=== PATIENT | female | born 1985 | race Caucasian/White ===

== ENCOUNTER 2016-11-03 16:13 | Emergency (ER) | payer MEDICAID ==
[2016-11-03 16:50] LABS: Hematocrit 38 % (35-47); Mean Corpuscular HGB Conc 34 g/dl (31-36); Mean Corpuscular Hemoglobin 31 pg (27-31); Mean Corpuscular Volume 91 fL (80-97); Mean Platelet Volume 10 um3 (7.4-10.4); Red Cell Distribution Width 13 % (10.5-15)
[2016-11-03 17:06] LABS: Albumin 4.6 g/dL (3.2-5.2); BUN/Creatinine Ratio 9.2 (8-20); C Reactive Protein 21.55 mg/L (< 5.00); Calcium 9.6 mg/dL (8.6-10.3); EGFR African American 115.7 (>60); Potassium 3.6 mmol/L (3.5-5.0); Total Bilirubin 0.4 mg/dL (0.2-1.0); Total Protein 7.6 g/dL (6.4-8.9)
[2016-11-03] MEDS ORDERED: Ibuprofen TAB* 600 MG PO ONE (17:08)
[2016-11-03] MEDS ORDERED: Acetaminophen TAB* 325 MG PO ONE (17:11)
[2016-11-03] MEDS ORDERED: Ketorolac INJ* 30 MG/ML 1 ML VIAL IV PUSH ONE (21:17)
[2016-11-03] MEDS ORDERED: Ondansetron INJ* 2 MG/ML VIAL IV ONE (21:17)
[2016-11-03] MEDS ORDERED: NS 0.9% 1000 ML* 1,000 ML IV ONE (21:17)
[2016-11-03 21:21] LABS: Manual Entry Verification MR; UR Preg Internal Control QC Line Present
--- NOTE | 2016-11-03 21:27 | ED ---
Dominik Finch Thomas, scribed for Charly Yu MD on 11/03/16 at 2113 . Complex/Multi-Sys Presentation - HPI Summary HPI Summary: The pt is a 31 y/o F presenting to the Ed c/o generalized illness. Sx include fever, [place], nausea, neck pain, swollen glands in her legs, myalgia in her legs, arthralgia (knees, ankles, wrists), and decreased sleep secondary to pain. Her fever began 3 days ago and her other Sx began 24 hous ago. She denies vomiting. Her fever and pain are transiently relieved by ibuprofen, which she has taken today. Her Sx return quickly when meds wear off. PMHx: ulcers - History Of Current Complaint Chief Complaint: EDGeneral Time Seen by Provider: 11/03/16 21:09 Hx Obtained From: Patient Onset/Duration: Lasting Days - Sx began 24 hours ago (except fever, which began 3 days ago), Still Present Associated Signs And Symptoms: Positive: Headache, Nausea, Fever, Other - POS: neck pain, swollen glands in legs, myalgia in her legs, arthralgia (knees, ankles, wrists), decreased sleep secondary to [place]IN. Negative: Vomiting - Allergies/Home Medications Allergies/Adverse Reactions: Allergies Allergy/AdvReac Type Severity Reaction Status Date / Time Oxycodone [From Percocet] Allergy Itching Verified 11/03/16 16:25 PMH/Surg Hx/FS Hx/Imm Hx Previously Healthy: No GI History: Reports: Hx Ulcer Opthamlomology History: Denies: Hx Legally Blind Infectious Disease History: No Infectious Disease History: Denies: Traveled Outside the [place] in Last 30 Days - Family History Known Family History: Positive: Cardiac Disease, Other - POS: CA (leukemia), migraine - Social History Alcohol Use: Rare Substance Use Type: Reports: None Smoking Status (MU): Never Smoked Tobacco Review of Systems Positive: Fever, Other - POS: decreased sleep secondary to pain Eyes: Negative ENT: Other - POS: neck pain Cardiovascular: Negative Respiratory: Negative Positive: Nausea Genitourinary: Negative Positive: Arthralgia, Myalgia - legs Positive: Other - POS: swollen glands in legs Neurological: Other Positive: Headache Psychological: Normal All Other Systems Reviewed And Are Negative: Yes Physical Exam Triage Information Reviewed: Yes Vital Signs On Initial Exam: Initial Vitals Temp Pulse Resp BP Pulse Ox 100.8 F 108 18 129/71 98 11/03/16 16:16 11/03/16 16:16 11/03/16 16:16 11/03/16 16:16 11/03/16 16:16 Vital Signs Reviewed: Yes Appearance: Positive: Well-Appearing, No Pain Distress Skin: Positive: Warm Head/Face: Positive: Normal Head/Face Inspection Eyes: Positive: BRANDY ENT: Positive: Hearing grossly normal Neck: Positive: Supple Respiratory/Lung Sounds: Positive: Clear to Auscultation, Breath Sounds Present Cardiovascular: Positive: RRR Abdomen Description: Positive: Nontender, Soft Bowel Sounds: Positive: Present Musculoskeletal: Positive: Strength/ROM Intact Neurological: Positive: Alert, Oriented to Person Place, Time Psychiatric: Positive: Affect/Mood Appropriate - [place] Coma Scale Coma Scale Total: 15 Diagnostics - Vital Signs Vital Signs Temp Pulse Resp BP Pulse Ox 11/03/16 20:48 84 98 11/03/16 20:46 114/65 11/03/16 20:30 99.4 F 87 14 99/53 98 11/03/16 19:12 99.1 F 89 14 99/48 96 11/03/16 18:27 101.6 F 97 22 103/54 97 11/03/16 16:23 100.8 F 102 17 129/71 97 11/03/16 16:16 100.8 F 108 18 129/71 98 - Laboratory Lab Results: Lab Results 11/03/16 11/03/16 Range/Units 16:38 16:38 WBC 8.0 (3.5-10.8) 10^3/ul RBC 4.20 (4.0-5.4) 10^6/ul Hgb 13.0 (12.0-16.0) g/dl Hct 38 (35-47) % MCV 91 (80-97) fL MCH 31 (27-31) pg MCHC 34 (31-36) g/dl RDW 13 (10.5-15) % Plt Count 151 (150-450) 10^3/ul MPV 10 (7.4-10.4) um3 Neut % (Auto) 86.8 H (38-83) % Lymph % (Auto) 5.3 L (25-47) % [place] % (Auto) 7.6 (1-9) % Eos % (Auto) 0.1 (0-6) % Baso % (Auto) 0.2 (0-2) % Absolute Neuts (auto) 6.9 (1.5-7.7) 10^3/ul Absolute Lymphs (auto) 0.4 L (1.0-4.8) 10^3/ul Absolute Monos (auto) 0.6 (0-0.8) 10^3/ul Absolute Eos (auto) 0 (0-0.6) 10^3/ul Absolute Basos (auto) 0 (0-0.2) 10^3/ul Absolute Nucleated RBC 0 10^3/ul Nucleated RBC % 0 Sodium 139 (133-145) mmol/L Potassium 3.6 (3.5-5.0) mmol/L Chloride 104 (101-111) mmol/L Carbon Dioxide 27 (22-32) mmol/L Anion Gap 8 (2-11) mmol/L BUN 7 (6-24) mg/dL Creatinine 0.76 (0.51-0.95) mg/dL Est GFR ( Amer) 115.7 (>60) Est GFR (Non-Af Amer) 90.0 (>60) BUN/Creatinine Ratio 9.2 (8-20) Glucose 101 H (70-100) mg/dL Calcium 9.6 (8.6-10.3) mg/dL Total Bilirubin 0.40 (0.2-1.0) mg/dL AST 19 (13-39) U/L ALT 14 (7-52) U/L Alkaline Phosphatase 46 (34-104) U/L C-Reactive Protein 21.55 H (< 5.00) mg/L Total Protein 7.6 (6.4-8.9) g/dL Albumin 4.6 (3.2-5.2) g/dL Globulin 3.0 (2-4) g/dL Albumin/Globulin Ratio 1.5 (1-3) Result Diagrams: 11/03/16 16:38 11/03/16 16:38 Lab Statement: Any lab studies that have been ordered have been reviewed, and results considered in the medical decision making process. Re-Evaluation - Re-Evaluation First Eval Change: Improved Complex Multi-Symp Course/Dx - Diagnoses Provider Diagnoses: Viral syndrome Discharge - Discharge Plan Condition: Improved Disposition: HOME The documentation as recorded by the Dominik reddy Thomas accurately reflects the service I personally performed and the decisions made by me, Charly Yu MD.
[2016-11-03 21:28] LABS: Urine Bacteria Absent (Absent); Urine Bilirubin Negative (Negative); Urine Glucose Negative (Negative); Urine Nitrite Negative (Negative)
[2016-11-04] MEDS ORDERED: HYDROcodone/ACETAMIN 5-325 MG* 1 TAB PO ONE ×2 (00:18→01:00)
[2016-11-04 01:41] VITALS: BP 108/56
== END 2016-11-04 01:43 | disposition home or self-care (01) ==
LOC: ED 16:13
DX: B34.9 Viral infection, unspecified (principal); R50.9 Fever, unspecified; M54.2 Cervicalgia; R51 Headache
CPT/HCPCS: 36415; 80053; 81003; 81015; 81025; 85025; 86140; 86618; 87040; 87086; 96374; 96375; 99284; A9270-GY; J1885; J2405

== ENCOUNTER 2016-11-04 16:12 | Inpatient (IN) | payer MEDICAID ==
[2016-11-04] MEDS ORDERED: Ketorolac INJ* 30 MG/ML 1 ML VIAL IV ONE (17:03)
[2016-11-04] MEDS ORDERED: NS 0.9% 1000 ML* 2,000 ML IV ONE (17:03)
[2016-11-04] MEDS ORDERED: Metoclopramide IV* 5 MG/ML 2 ML VIAL IV ONE (17:03)
[2016-11-04] MEDS ORDERED: Acetaminophen TAB* 325 MG PO ONE (17:03)
[2016-11-04] MEDS ORDERED: Vancomycin(*) 1,000 MG in NS 0.9% 250 ML* 250 ML IVPB ONE (17:57)
[2016-11-04 18:01] LABS: Hematocrit 37 % (35-47); Hemoglobin 12.6 g/dl (12.0-16.0); Mean Corpuscular HGB Conc 34 g/dl (31-36); Mean Corpuscular Hemoglobin 31 pg (27-31); Mean Corpuscular Volume 91 fL (80-97); Mean Platelet Volume 10 um3 (7.4-10.4); Red Blood Count 4.04 10^6/ul (4.0-5.4); Red Cell Distribution Width 13 % (10.5-15); White Blood Count 9.6 10^3/ul (3.5-10.8)
[2016-11-04] MEDS: diPHENhydraMINE IV* 50 MG/ML 1 ml VIAL (BENADRYL) IM ONE ×2 (18:11→18:42)
[2016-11-04 18:16] LABS: BUN/Creatinine Ratio 6.9 (8-20); Calcium 8.7 mg/dL (8.6-10.3); Globulin 2.9 g/dL (2-4); Potassium 3.3 mmol/L (3.5-5.0); Total Bilirubin 0.5 mg/dL (0.2-1.0); Total Protein 6.9 g/dL (6.4-8.9)
[2016-11-04 18:44] LABS: Urine Bacteria 1+ (Absent); Urine Bilirubin Negative (Negative); Urine Glucose Negative (Negative); Urine Nitrite Negative (Negative)
[2016-11-04 18:56] LABS: Erythrocyte Sed Rate 27 mm/Hr (0-14)
--- NOTE | 2016-11-04 19:19 | ED ---
Heidy Finch Salem, scribed for Javier Jacob MD on 11/04/16 at 1654 . HPI Febrile Illness - HPI Summary HPI Summary: Patient is a 31 y/o F who presents to the ED with a fever for the past 4 days. She states that symptoms began with a swollen gland in her groin and pain radiating down her LLE. Since then she has been experiencing various symptoms. She reports sensitivity to neck movement since 2 days ago, joint soreness ( worse in lower back and knees), back soreness, nauseas, fever, numbness of hands , headache, and mild post-nasal drip, but she denies cough, sore throat, or rash. Pt states that she was bit on her chest by a tick 1.5 weeks ago. At 1330, pt took Tylenol 500mg. Her last pain medication was at 0730 this morning. - History of Current Complaint Chief Complaint: EDFever Time Seen by Provider: 11/04/16 16:21 Hx Obtained From: Patient, Family/Cocoa Roaster Onset/Duration: Started Days Ago, Atraumatic, Still Present Timing: Constant Initial Severity: Moderate Current Severity: Moderate Pain Intensity: 7 Pain Scale Used: 0-10 Numeric Aggravating Factors: Other: - Movement. Alleviating Factors: Other: - Recumbent position. Associated Signs and Symptoms: Headache, Nausea Related History: Recent Tick Bite - Allergy/Home Medications Allergies/Adverse Reactions: Allergies Allergy/AdvReac Type Severity Reaction Status Date / Time Oxycodone [From Percocet] Allergy Itching Verified 11/04/16 16:19 PMH/Surg Hx/FS Hx/Imm Hx GI History: Reports: Hx Ulcer Sensory History: Denies: Hx Legally Blind Opthamlomology History: Denies: Hx Legally Blind Infectious Disease History: Yes Infectious Disease History: Denies: Traveled Outside the [place] in Last 30 Days - Family History Known Family History: Positive: Cardiac Disease, Other - POS: CA (leukemia), migraine - Social History Alcohol Use: Rare Hx Substance Use: No Substance Use Type: Reports: None Hx Tobacco Use: No Smoking Status (MU): Never Smoked Tobacco Review of Systems Positive: Fever Positive: Other - Sensitivity to neck movement. Mild post-nasal drip. . Negative: Sore Throat Negative: Cough Positive: Nausea Positive: Other - Pain down LLE. Swollen gland in groin. "Joint soreness." Sore back. Soreness in hands. Negative: Rash Positive: Headache All Other Systems Reviewed And Are Negative: Yes Physical Exam - Summary Physical Exam Summary: The patient is well-nourished in no acute distress and in no acute pain. The skin is warm and dry and skin color reflects adequate perfusion. She has good skin trugor and there are no rashes noted. HEENT: The head is normocephalic and atraumatic. The pupils are equal and reactive, but there is slight photophobia. The conjunctivae are clear and without drainage. Nares are patent and without drainage. Mouth reveals moist mucous membranes and the throat is without erythema and exudate. There is no post-nasal drip. The external ears are intact. The ear canals are patent and without drainage. The tympanic membranes are intact. She appeared to move her neck freely, but tender. Respiratory: Chest is non-tender. Lungs are clear to auscultation and breath sounds are symmetrical and equal. Cardiovascular: Hear is regular rate and rhythm. There is no murmur or rub auscultated. There is no peripheral edema and pulses are symmetrical and equal. Abdomen: The abdomen is soft and non-tender. There are normal bowel sounds heard in all four quadrants. Musculoskeletal: There is no back pain noted. Extremities are non-tender with full range of motion. There is good capillary refill. She exhibits muscle spams. Neurological: Patient is alert and oriented to person, place and time. The patient has symmetrical motor strength in all four extremities. No focal deficit appreciated. Psychiatric: The patient has an appropriate affect and does not exhibit any anxiety or depression. Triage Information Reviewed: Yes Vital Signs On Initial Exam: Initial Vitals Temp Pulse Resp BP Pulse Ox 101.6 F 99 16 119/55 100 11/04/16 16:17 11/04/16 16:17 11/04/16 16:17 11/04/16 16:17 11/04/16 16:17 Vital Signs Reviewed: Yes - [place] Coma Scale Coma Scale Total: 15 Diagnostics - Vital Signs Vital Signs Temp Pulse Resp BP Pulse Ox 11/04/16 16:40 101.3 F 90 16 119/60 100 11/04/16 16:17 101.6 F 99 16 119/55 100 - Laboratory Lab Results: Lab Results 0711/04/16 11/04/16 Range/Units 17:51 17:51 17:51 WBC 9.6 (3.5-10.8) 10^3/ul RBC 4.04 (4.0-5.4) 10^6/ul Hgb 12.6 (12.0-16.0) g/dl Hct 37 (35-47) % MCV 91 (80-97) fL MCH 31 (27-31) pg MCHC 34 (31-36) g/dl RDW 13 (10.5-15) % Plt Count 135 L (150-450) 10^3/ul MPV 10 (7.4-10.4) um3 Neut % (Auto) 91.1 H (38-83) % Lymph % (Auto) 4.1 L (25-47) % [place] % (Auto) 4.6 (1-9) % Eos % (Auto) 0 (0-6) % Baso % (Auto) 0.2 (0-2) % Absolute Neuts (auto) 8.7 H (1.5-7.7) 10^3/ul Absolute Lymphs (auto) 0.4 L (1.0-4.8) 10^3/ul Absolute Monos (auto) 0.4 (0-0.8) 10^3/ul Absolute Eos (auto) 0 (0-0.6) 10^3/ul Absolute Basos (auto) 0 (0-0.2) 10^3/ul Absolute Nucleated RBC 0 10^3/ul Nucleated RBC % 0 ESR 27 H (0-14) mm/Hr INR (Anticoag Therapy) (0.89-1.11) APTT (26.0-36.3) seconds Sodium 131 L D (133-145) mmol/L Potassium 3.3 L (3.5-5.0) mmol/L Chloride 99 L (101-111) mmol/L Carbon Dioxide 26 (22-32) mmol/L Anion Gap 6 (2-11) mmol/L BUN 6 (6-24) mg/dL Creatinine 0.87 (0.51-0.95) mg/dL Est GFR ( Amer) 99.0 (>60) Est GFR (Non-Af Amer) 77.0 (>60) BUN/Creatinine Ratio 6.9 L (8-20) Glucose 131 H (70-100) mg/dL Lactic Acid 1.0 (0.5-2.0) mmol/L Calcium 8.7 (8.6-10.3) mg/dL Total Bilirubin 0.50 (0.2-1.0) mg/dL AST 27 (13-39) U/L ALT 26 (7-52) U/L Alkaline Phosphatase 34 (34-104) U/L Total Protein 6.9 (6.4-8.9) g/dL Albumin 4.0 (3.2-5.2) g/dL Globulin 2.9 (2-4) g/dL Albumin/Globulin Ratio 1.4 (1-3) Urine Color Urine Appearance Urine pH (5-9) Ur Specific [place] (1.010-1.030) Urine Protein (Negative) Urine Ketones (Negative) Urine Blood (Negative) Urine Nitrate (Negative) Urine Bilirubin (Negative) Urine Urobilinogen (Negative) Ur Leukocyte Esterase (Negative) Urine WBC (Auto) (Absent) Urine RBC (Auto) (Absent) Ur Squamous Epith Cells (Absent) Urine Bacteria (Absent) Urine Glucose (Negative) 11/04/16 11/04/16 Range/Units 17:51 18:00 WBC (3.5-10.8) 10^3/ul RBC (4.0-5.4) 10^6/ul Hgb (12.0-16.0) g/dl Hct (35-47) % MCV (80-97) fL MCH (27-31) pg MCHC (31-36) g/dl RDW (10.5-15) % Plt Count (150-450) 10^3/ul MPV (7.4-10.4) um3 Neut % (Auto) (38-83) % Lymph % (Auto) (25-47) % [place] % (Auto) (1-9) % Eos % (Auto) (0-6) % Baso % (Auto) (0-2) % Absolute Neuts (auto) (1.5-7.7) 10^3/ul Absolute Lymphs (auto) (1.0-4.8) 10^3/ul Absolute Monos (auto) (0-0.8) 10^3/ul Absolute Eos (auto) (0-0.6) 10^3/ul Absolute Basos (auto) (0-0.2) 10^3/ul Absolute Nucleated RBC 10^3/ul Nucleated RBC % ESR (0-14) mm/Hr INR (Anticoag Therapy) 1.20 H (0.89-1.11) APTT 26.4 (26.0-36.3) seconds Sodium (133-145) mmol/L Potassium (3.5-5.0) mmol/L Chloride (101-111) mmol/L Carbon Dioxide (22-32) mmol/L Anion Gap (2-11) mmol/L BUN (6-24) mg/dL Creatinine (0.51-0.95) mg/dL Est GFR ( Amer) (>60) Est GFR (Non-Af Amer) (>60) BUN/Creatinine Ratio (8-20) Glucose (70-100) mg/dL Lactic Acid (0.5-2.0) mmol/L Calcium (8.6-10.3) mg/dL Total Bilirubin (0.2-1.0) mg/dL AST (13-39) U/L ALT (7-52) U/L Alkaline Phosphatase (34-104) U/L Total Protein (6.4-8.9) g/dL Albumin (3.2-5.2) g/dL Globulin (2-4) g/dL Albumin/Globulin Ratio (1-3) Urine Color Yellow Urine Appearance Clear Urine pH 7.0 (5-9) Ur Specific [place] 1.011 (1.010-1.030) Urine Protein 1+(30 mg/dl) H (Negative) Urine Ketones 1+ H (Negative) Urine Blood 1+ H (Negative) Urine Nitrate Negative (Negative) Urine Bilirubin Negative (Negative) Urine Urobilinogen Negative (Negative) Ur Leukocyte Esterase 1+ H (Negative) Urine WBC (Auto) 1+(6-10/hpf) H (Absent) Urine RBC (Auto) Trace(0-2/hpf) (Absent) Ur Squamous Epith Cells Present H (Absent) Urine Bacteria 1+ H (Absent) Urine Glucose Negative (Negative) Result Diagrams: 11/04/16 17:51 11/04/16 17:51 Lab Statement: Any lab studies that have been ordered have been reviewed, and results considered in the medical decision making process. Course/Dx - Course Course Of Treatment: 31 y/o F presents with a fever for the past 4 days. She states that symptoms began with a swollen gland in her groin and pain radiating down her LLE. She reports sensitivity to neck movement since 2 days ago, joint soreness (worse in lower back and knees), back soreness, nauseas, fever, numbness of hands, headache, and mild post-nasal drip, but she denies cough, sore throat, or rash. Pt states that she was bit on her chest by a tick 1.5 weeks ago. Pt received Tylenol, Toradol, Reglan, Benadryl, and fluids in the ED course. Dr. Olivera will do LP on pt. Will admit pt. - Febrile Illness Differential Diagnoses: Other: - lyme encephalopathy, - Diagnoses Provider Diagnoses: Viral meningitis, Fever, Headache, UTI (urinary tract infection) - Provider Notifications Discussed Care Of Patient With: Thien Medina Time Discussed With Above Provider: 19:12 Instructed by Provider To: Admit As Inpatient Admit/Transition Orders Completed By ED Provider: Yes Discharge - Discharge Plan Condition: Stable Disposition: ADMITTED TO [facility] Referrals: Non Staff,Doctor [Primary Care Provider] - The documentation as recorded by the Heidy reddy Salem accurately reflects the service I personally performed and the decisions made by , Javier Jacob MD.
--- NOTE | 2016-11-04 19:27 | PN ---
Progress Note - Progress Note Date of Service: 11/04/16 Note: Procedure note Procedure name: lumbar puncture Indication: r/o meningitis Provider: Wong Olivera MD Date and time: 11/04/16, start around 18:30 After obtaining informed consent, the patient was placed in the left later decubitus position. The area around L4-5 was cleaned, prepped and draped in a sterile fashion. 3 cc of lidocaine was used for local anesthesia of the L4-5 interspinous space. LP needle was inserted in the same location. A total of about 11 cc of clear CSF fluid was collected and sent to the lab. The patient tolerated the procedure well without any complicatoins.
[2016-11-04 19:41] LABS: CSF Glucose 89 mg/dL (40-70)
[2016-11-04] MEDS ORDERED: Potassium Chloride LIQUID* 20 MEQ PACKET PO ONE (20:26)
[2016-11-04 20:36] LABS: Body Fluid Appearance Clear; Body Fluid Total Cells Counted 4
[2016-11-04 20:37] LABS: BF RBC Count #1 0; BF RBC Count #2 0; BF WBC Count #1 0; BF WBC Count #2 0; RBC counts within 6%? Yes; WBC counts within 15%? Yes
[2016-11-04 20:39] LABS: Body Fluid WBC 0 /mcL
[2016-11-04] MEDS ORDERED: Vancomycin per Pharmacy* NOTE FOLLOW UP PRN (20:43)
[2016-11-04] MEDS: Ondansetron INJ* 2 MG/ML VIAL IV PRN (21:19)
[2016-11-04] MEDS ORDERED: cefTRIAXone VIAL(*) 2,000 MG in NS 0.9% 50 ML* 50 ML IVPB SCH (22:00)
[2016-11-04] MEDS: NS 0.9% 1000 ML* 1,000 ML IV SCH (22:59)
[2016-11-04] MEDS ORDERED: LORazepam INJ* 2 MG/ML 1 ML VIAL IV PUSH PRN (23:01)
[2016-11-04] MEDS: Ketorolac INJ* 15 MG/ML 1 ML VIAL IV PUSH PRN (23:03)
[2016-11-05] MEDS: Acetaminophen TAB* 325 MG PO PRN ×4 (00:57→18:04)
[2016-11-05] MEDS ORDERED: oxyCODONE/Acetamin 5/325 MG* TAB PO PRN (02:50)
[2016-11-05] MEDS ORDERED: Vancomycin(*) 1,000 MG in NS 0.9% 250 ML* 250 ML IVPB SCH (03:00)
[2016-11-05] MEDS: traMADol TAB* 50 MG PO PRN (03:11)
[2016-11-05] MEDS: Ketorolac INJ* 15 MG/ML 1 ML VIAL IV PUSH PRN ×3 (04:52→19:21)
[2016-11-05 07:09] LABS: Hematocrit 31 % (35-47); Hemoglobin 10.7 g/dl (12.0-16.0); Mean Corpuscular HGB Conc 34 g/dl (31-36); Mean Corpuscular Hemoglobin 31 pg (27-31); Mean Corpuscular Volume 92 fL (80-97); Mean Platelet Volume 10 um3 (7.4-10.4); Red Blood Count 3.41 10^6/ul (4.0-5.4); Red Cell Distribution Width 13 % (10.5-15); White Blood Count 8.4 10^3/ul (3.5-10.8)
[2016-11-05 07:27] LABS: Calcium 7.7 mg/dL (8.6-10.3); EGFR African American 117.5 (>60); EGFR Non-African American 91.4 (>60); Potassium 3.6 mmol/L (3.5-5.0)
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
[2016-11-05] MEDS: NS 0.9% 1000 ML* 1,000 ML IV SCH ×2 (10:54→19:35)
--- NOTE | 2016-11-05 11:08 | PN ---
Subjective Date of Service: 11/05/16 Interval History: Pt had had fevers, headache and photophobia x 3 days. Also anterior neck pain Noted left groin adenopathy and today in AM left side of her vulva got swollen. Objective Active Medications: Acetaminophen (Tylenol Tab*) 650 mg PO Q4H PRN PRN Reason: FEVER/PAIN Last Admin: 11/05/16 10:51 Dose: 650 mg Sodium Chloride (Ns 0.9% 1000 Ml*) 1,000 mls @ 125 mls/hr IV PER RATE MARIO Last Admin: 11/05/16 10:54 Dose: 125 mls/hr Ceftriaxone Sodium 2,000 mg/ (Sodium Chloride) 100 mls @ 200 mls/hr IVPB Q12H MARIO Last Admin: 11/05/16 09:42 Dose: 200 mls/hr Ketorolac Tromethamine (Toradol Inj*) 15 mg IV PUSH Q6H PRN PRN Reason: PAIN Last Admin: 11/05/16 04:52 Dose: 15 mg Ondansetron HCl (Zofran Inj*) 4 mg IV Q6H PRN PRN Reason: NAUSEA Last Admin: 11/04/16 21:19 Dose: 4 mg Pharmacy Profile Note (Vancomycin Trough Check) 1 note FOLLOW UP 1430 ONE Stop: 11/05/16 14:31 Tramadol HCl (Ultram*) 50 mg PO Q6H PRN PRN Reason: PAIN Last Admin: 11/05/16 03:11 Dose: 50 mg Vital Signs 11/04/16 11/04/16 11/04/16 20:30 20:37 21:00 Temperature Pulse Rate 82 89 78 Respiratory 11 18 18 Rate Blood Pressure 89/53 95/55 100/55 (mmHg) O2 Sat by Pulse 97 98 97 Oximetry 11/04/16 11/04/16 11/04/16 21:18 21:30 22:00 Temperature 98.8 F Pulse Rate 81 81 Respiratory 18 19 18 Rate Blood Pressure 104/58 (mmHg) O2 Sat by Pulse 99 100 Oximetry 11/05/16 11/05/16 11/05/16 00:50 03:11 03:40 Temperature 102.8 F 102.1 F Pulse Rate 89 Respiratory 15 16 Rate Blood Pressure 107/59 (mmHg) O2 Sat by Pulse 99 Oximetry 11/05/16 11/05/16 11/05/16 04:17 04:47 05:11 Temperature 100.9 F 102.1 F Pulse Rate Respiratory 15 Rate Blood Pressure (mmHg) O2 Sat by Pulse Oximetry 11/05/16 11/05/16 11/05/16 06:25 06:30 07:46 Temperature 98.7 F 98.2 F Pulse Rate 85 Respiratory 15 16 Rate Blood Pressure 103/60 (mmHg) O2 Sat by Pulse 99 Oximetry 11/05/16 08:46 Temperature Pulse Rate Respiratory Rate Blood Pressure (mmHg) O2 Sat by Pulse 98 Oximetry Oxygen Devices in Use Now: None Appearance: 31 yo F in nAD, aAOx3 Eyes: No Scleral Icterus, PERRLA Ears/Nose/Mouth/Throat: NL Teeth, Lips, Gums, Mucous Membranes Moist Neck: NL Appearance and Movements; NL JVP, - - tender anterior cervical adenopathy b/l Respiratory: Symmetrical Chest Expansion and Respiratory Effort, Clear to Auscultation Cardiovascular: NL Sounds; No Murmurs; No JVD, RRR Abdominal: NL Sounds; No Tenderness; No Distention, - - left groin adneopathy noted left vulvar area with mild edema, no cellulits noted, no palpable masses Lymphatic: No Cervical Adenopathy Extremities: No Edema, No Clubbing, Cyanosis Skin: No Rash or Ulcers, No Nodules or Sclerosis Neurological: Alert and Oriented x 3, NL Muscle Strength and Tone Result Diagrams: 11/05/16 06:44 11/05/16 06:44 Additional Lab and Data: Lab Results 11/04/16 11/04/16 11/04/16 Range/Units 17:51 17:51 17:51 WBC 9.6 (3.5-10.8) 10^3/ul RBC 4.04 (4.0-5.4) 10^6/ul Hgb 12.6 (12.0-16.0) g/dl Hct 37 (35-47) % MCV 91 (80-97) fL MCH 31 (27-31) pg MCHC 34 (31-36) g/dl RDW 13 (10.5-15) % Plt Count 135 L (150-450) 10^3/ul MPV 10 (7.4-10.4) um3 Neut % (Auto) 91.1 H (38-83) % Lymph % (Auto) 4.1 L (25-47) % [place] % (Auto) 4.6 (1-9) % Eos % (Auto) 0 (0-6) % Baso % (Auto) 0.2 (0-2) % Absolute Neuts (auto) 8.7 H (1.5-7.7) 10^3/ul Absolute Lymphs (auto) 0.4 L (1.0-4.8) 10^3/ul Absolute Monos (auto) 0.4 (0-0.8) 10^3/ul Absolute Eos (auto) 0 (0-0.6) 10^3/ul Absolute Basos (auto) 0 (0-0.2) 10^3/ul Absolute Nucleated RBC 0 10^3/ul Nucleated RBC % 0 ESR 27 H (0-14) mm/Hr INR (Anticoag Therapy) (0.89-1.11) APTT (26.0-36.3) seconds Sodium 131 L D (133-145) mmol/L Potassium 3.3 L (3.5-5.0) mmol/L Chloride 99 L (101-111) mmol/L Carbon Dioxide 26 (22-32) mmol/L Anion Gap 6 (2-11) mmol/L BUN 6 (6-24) mg/dL Creatinine 0.87 (0.51-0.95) mg/dL Est GFR ( Amer) 99.0 (>60) Est GFR (Non-Af Amer) 77.0 (>60) BUN/Creatinine Ratio 6.9 L (8-20) Glucose 131 H (70-100) mg/dL Lactic Acid 1.0 (0.5-2.0) mmol/L Calcium 8.7 (8.6-10.3) mg/dL Total Bilirubin 0.50 (0.2-1.0) mg/dL AST 27 (13-39) U/L ALT 26 (7-52) U/L Alkaline Phosphatase 34 (34-104) U/L Total Protein 6.9 (6.4-8.9) g/dL Albumin 4.0 (3.2-5.2) g/dL Globulin 2.9 (2-4) g/dL Albumin/Globulin Ratio 1.4 (1-3) Urine Color Urine Appearance Urine pH (5-9) Ur Specific [place] (1.010-1.030) Urine Protein (Negative) Urine Ketones (Negative) Urine Blood (Negative) Urine Nitrate (Negative) Urine Bilirubin (Negative) Urine Urobilinogen (Negative) Ur Leukocyte Esterase (Negative) Urine WBC (Auto) (Absent) Urine RBC (Auto) (Absent) Ur Squamous Epith Cells (Absent) Urine Bacteria (Absent) Urine Glucose (Negative) 11/04/16 11/04/16 Range/Units 17:51 18:00 WBC (3.5-10.8) 10^3/ul RBC (4.0-5.4) 10^6/ul Hgb (12.0-16.0) g/dl Hct (35-47) % MCV (80-97) fL MCH (27-31) pg MCHC (31-36) g/dl RDW (10.5-15) % Plt Count (150-450) 10^3/ul MPV (7.4-10.4) um3 Neut % (Auto) (38-83) % Lymph % (Auto) (25-47) % [place] % (Auto) (1-9) % Eos % (Auto) (0-6) % Baso % (Auto) (0-2) % Absolute Neuts (auto) (1.5-7.7) 10^3/ul Absolute Lymphs (auto) (1.0-4.8) 10^3/ul Absolute Monos (auto) (0-0.8) 10^3/ul Absolute Eos (auto) (0-0.6) 10^3/ul Absolute Basos (auto) (0-0.2) 10^3/ul Absolute Nucleated RBC 10^3/ul Nucleated RBC % ESR (0-14) mm/Hr INR (Anticoag Therapy) 1.20 H (0.89-1.11) APTT 26.4 (26.0-36.3) seconds Sodium (133-145) mmol/L Potassium (3.5-5.0) mmol/L Chloride (101-111) mmol/L Carbon Dioxide (22-32) mmol/L Anion Gap (2-11) mmol/L BUN (6-24) mg/dL Creatinine (0.51-0.95) mg/dL Est GFR ( Amer) (>60) Est GFR (Non-Af Amer) (>60) BUN/Creatinine Ratio (8-20) Glucose (70-100) mg/dL Lactic Acid (0.5-2.0) mmol/L Calcium (8.6-10.3) mg/dL Total Bilirubin (0.2-1.0) mg/dL AST (13-39) U/L ALT (7-52) U/L Alkaline Phosphatase (34-104) U/L Total Protein (6.4-8.9) g/dL Albumin (3.2-5.2) g/dL Globulin (2-4) g/dL Albumin/Globulin Ratio (1-3) Urine Color Yellow Urine Appearance Clear Urine pH 7.0 (5-9) Ur Specific [place] 1.011 (1.010-1.030) Urine Protein 1+(30 mg/dl) H (Negative) Urine Ketones 1+ H (Negative) Urine Blood 1+ H (Negative) Urine Nitrate Negative (Negative) Urine Bilirubin Negative (Negative) Urine Urobilinogen Negative (Negative) Ur Leukocyte Esterase 1+ H (Negative) Urine WBC (Auto) 1+(6-10/hpf) H (Absent) Urine RBC (Auto) Trace(0-2/hpf) (Absent) Ur Squamous Epith Cells Present H (Absent) Urine Bacteria 1+ H (Absent) Urine Glucose Negative (Negative) Assess/Plan/Problems-Billing Assessment: 31 yo F presents with headache and photophobia - Patient Problems (1) Headache Comment: Fairly controlled with pain meds, still has photophobia. CSF unremarknable (no WBC's), cx pending, but no bacteria seen D/c Vancomycin/Rocephin viral syndrome vs Lyme. will start Doxy PO (2) Inguinal lymphadenopathy Comment: US pending, will ask INSTRUMENT STERILIZER to consult Chack dopplers to f/o DVT (3) DVT prophylaxis Comment: low risk, ambulation Status and Disposition: Due to continuation of symptoms will place pt on inpatient
[2016-11-05 11:44] LABS: Mono Internal Control QC Line Present
[2016-11-05 11:49] LABS: C Reactive Protein 129.08 mg/L (< 5.00)
--- NOTE | 2016-11-05 13:07 | RAD ---
INDICATION: Left ankle swelling COMPARISON: None TECHNIQUE: Transverse and longitudinal scans of the left inguinal region were performed utilizing grayscale and color Doppler imaging. FINDINGS: There are necrotic appearing, enlarged lymph nodes in left inguinal region one measuring 2.5 x 3.7 x 0.2 cm and the second 1.9 x 1.3 x 1.4 cm. There is soft tissue edema. Doppler interrogation shows a patent common femoral vein. IMPRESSION: ENLARGED, NECROTIC APPEARING LEFT INGUINAL LYMPH NODES. SUGGEST FOLLOW-UP CLINICAL EVALUATION AND MANAGEMENT.
[2016-11-05] MEDS ORDERED: Vancomycin Trough Check NOTE FOLLOW UP ONE (14:30)
[2016-11-05] MEDS: DOXYcycline CAP(*) 100 MG PO SCH (21:28)
[2016-11-06] MEDS: Ketorolac INJ* 15 MG/ML 1 ML VIAL IV PUSH PRN (01:06)
[2016-11-06] MEDS: Acetaminophen TAB* 325 MG PO PRN ×3 (04:25→15:53)
[2016-11-06] MEDS: traMADol TAB* 50 MG PO PRN ×3 (04:30→16:45)
[2016-11-06] MEDS: NS 0.9% 1000 ML* 1,000 ML IV SCH ×2 (05:29→14:18)
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
[2016-11-06 06:37] LABS: Hematocrit 30 % (35-47); Mean Corpuscular HGB Conc 33 g/dl (31-36); Mean Corpuscular Hemoglobin 31 pg (27-31); Mean Corpuscular Volume 93 fL (80-97); Mean Platelet Volume 11 um3 (7.4-10.4); Red Blood Count 3.24 10^6/ul (4.0-5.4); Red Cell Distribution Width 14 % (10.5-15); White Blood Count 5.2 10^3/ul (3.5-10.8)
[2016-11-06 06:41] LABS: Comments Flag Yes
[2016-11-06 06:47] LABS: BUN/Creatinine Ratio 8.3 (8-20); C Reactive Protein 97.46 mg/L (< 5.00); Calcium 7.7 mg/dL (8.6-10.3); EGFR Non-African American 118.2 (>60)
[2016-11-06 07:05] LABS: Potassium 3.8 mmol/L (3.5-5.0)
[2016-11-06] MEDS: DOXYcycline CAP(*) 100 MG PO SCH ×2 (08:35→21:13)
[2016-11-06] MEDS ORDERED: Morphine INJ* 2 MG/ML 1 ML SYRINGE IV PRN ×2 (09:55→15:45)
[2016-11-06] MEDS: Ondansetron INJ* 2 MG/ML VIAL IV PRN ×2 (10:40→16:40)
[2016-11-06 11:49] LABS: RBC Parasite Smear No Parasites Seen (No Parasite)
--- NOTE | 2016-11-06 13:28 | PN ---
Subjective Date of Service: 11/06/16 Interval History: pt feels better after morphine was administered for headache. noted less vulvar edema , but more left medial thigh edema Objective Active Medications: Acetaminophen (Tylenol Tab*) 650 mg PO Q4H PRN PRN Reason: FEVER/PAIN Last Admin: 11/06/16 08:35 Dose: 650 mg Doxycycline Hyclate (Vibramycin Cap(*)) 100 mg PO BID [facility] Last Admin: 11/06/16 08:35 Dose: 100 mg Sodium Chloride (Ns 0.9% 1000 Ml*) 1,000 mls @ 125 mls/hr IV PER RATE [facility] Last Admin: 11/06/16 05:29 Dose: 125 mls/hr Ibuprofen (Motrin Tab*) 600 mg PO Q6H PRN PRN Reason: PAIN Morphine Sulfate (Morphine Inj (Syringe)*) 2 mg IV Q4H PRN PRN Reason: PAIN Last Admin: 11/06/16 10:40 Dose: 2 mg Ondansetron HCl (Zofran Inj*) 4 mg IV Q6H PRN PRN Reason: NAUSEA Last Admin: 11/06/16 10:40 Dose: 4 mg Tramadol HCl (Ultram*) 50 mg PO Q6H PRN PRN Reason: PAIN Last Admin: 11/06/16 09:30 Dose: 50 mg Vital Signs 11/05/16 11/05/16 11/05/16 15:54 19:51 20:00 Temperature 98.0 F 98.5 F Pulse Rate 75 67 Respiratory 16 16 16 Rate Blood Pressure 104/63 96/54 (mmHg) O2 Sat by Pulse 100 99 100 Oximetry 11/06/16 11/06/16 11/06/16 00:01 03:38 04:30 Temperature 98.5 F 98.4 F Pulse Rate 59 62 Respiratory 16 16 15 Rate Blood Pressure 101/67 93/54 (mmHg) O2 Sat by Pulse 100 98 Oximetry 11/06/16 11/06/16 11/06/16 07:41 09:30 10:40 Temperature 98.0 F Pulse Rate 61 Respiratory 16 16 16 Rate Blood Pressure 94/55 (mmHg) O2 Sat by Pulse 99 Oximetry Oxygen Devices in Use Now: None Appearance: 31 yo F in nAD, AAOx3 Eyes: No Scleral Icterus, PERRLA Ears/Nose/Mouth/Throat: NL Teeth, Lips, Gums, Mucous Membranes Moist Neck: NL Appearance and Movements; NL JVP, Trachea Midline, - - neck tender to plapation on left anterior neck, shotty enterior cervical adenopathy noted Respiratory: Symmetrical Chest Expansion and Respiratory Effort, Clear to Auscultation Cardiovascular: NL Sounds; No Murmurs; No JVD, RRR Abdominal: NL Sounds; No Tenderness; No Distention Extremities: No Clubbing, Cyanosis, - - left medial thigh edema, non tender, left inguinal adenopathy palpable. Mild left labia majora edema with slight erythema Skin: No Nodules or Sclerosis Neurological: Alert and Oriented x 3, NL Muscle Strength and Tone Result Diagrams: 11/06/16 05:54 11/06/16 05:54 Additional Lab and Data: Lab Results 11/04/16 11/04/16 11/04/16 Range/Units 17:51 17:51 17:51 WBC 9.6 (3.5-10.8) 10^3/ul RBC 4.04 (4.0-5.4) 10^6/ul Hgb 12.6 (12.0-16.0) g/dl Hct 37 (35-47) % MCV 91 (80-97) fL MCH 31 (27-31) pg MCHC 34 (31-36) g/dl RDW 13 (10.5-15) % Plt Count 135 L (150-450) 10^3/ul MPV 10 (7.4-10.4) um3 Neut % (Auto) 91.1 H (38-83) % Lymph % (Auto) 4.1 L (25-47) % [place] % (Auto) 4.6 (1-9) % Eos % (Auto) 0 (0-6) % Baso % (Auto) 0.2 (0-2) % Absolute Neuts (auto) 8.7 H (1.5-7.7) 10^3/ul Absolute Lymphs (auto) 0.4 L (1.0-4.8) 10^3/ul Absolute Monos (auto) 0.4 (0-0.8) 10^3/ul Absolute Eos (auto) 0 (0-0.6) 10^3/ul Absolute Basos (auto) 0 (0-0.2) 10^3/ul Absolute Nucleated RBC 0 10^3/ul Nucleated RBC % 0 ESR 27 H (0-14) mm/Hr INR (Anticoag Therapy) (0.89-1.11) APTT (26.0-36.3) seconds Sodium 131 L D (133-145) mmol/L Potassium 3.3 L (3.5-5.0) mmol/L Chloride 99 L (101-111) mmol/L Carbon Dioxide 26 (22-32) mmol/L Anion Gap 6 (2-11) mmol/L BUN 6 (6-24) mg/dL Creatinine 0.87 (0.51-0.95) mg/dL Est GFR ( Amer) 99.0 (>60) Est GFR (Non-Af Amer) 77.0 (>60) BUN/Creatinine Ratio 6.9 L (8-20) Glucose 131 H (70-100) mg/dL Lactic Acid 1.0 (0.5-2.0) mmol/L Calcium 8.7 (8.6-10.3) mg/dL Total Bilirubin 0.50 (0.2-1.0) mg/dL AST 27 (13-39) U/L ALT 26 (7-52) U/L Alkaline Phosphatase 34 (34-104) U/L Total Protein 6.9 (6.4-8.9) g/dL Albumin 4.0 (3.2-5.2) g/dL Globulin 2.9 (2-4) g/dL Albumin/Globulin Ratio 1.4 (1-3) Urine Color Urine Appearance Urine pH (5-9) Ur Specific [place] (1.010-1.030) Urine Protein (Negative) Urine Ketones (Negative) Urine Blood (Negative) Urine Nitrate (Negative) Urine Bilirubin (Negative) Urine Urobilinogen (Negative) Ur Leukocyte Esterase (Negative) Urine WBC (Auto) (Absent) Urine RBC (Auto) (Absent) Ur Squamous Epith Cells (Absent) Urine Bacteria (Absent) Urine Glucose (Negative) 11/04/16 11/04/16 Range/Units 17:51 18:00 WBC (3.5-10.8) 10^3/ul RBC (4.0-5.4) 10^6/ul Hgb (12.0-16.0) g/dl Hct (35-47) % MCV (80-97) fL MCH (27-31) pg MCHC (31-36) g/dl RDW (10.5-15) % Plt Count (150-450) 10^3/ul MPV (7.4-10.4) um3 Neut % (Auto) (38-83) % Lymph % (Auto) (25-47) % [place] % (Auto) (1-9) % Eos % (Auto) (0-6) % Baso % (Auto) (0-2) % Absolute Neuts (auto) (1.5-7.7) 10^3/ul Absolute Lymphs (auto) (1.0-4.8) 10^3/ul Absolute Monos (auto) (0-0.8) 10^3/ul Absolute Eos (auto) (0-0.6) 10^3/ul Absolute Basos (auto) (0-0.2) 10^3/ul Absolute Nucleated RBC 10^3/ul Nucleated RBC % ESR (0-14) mm/Hr INR (Anticoag Therapy) 1.20 H (0.89-1.11) APTT 26.4 (26.0-36.3) seconds Sodium (133-145) mmol/L Potassium (3.5-5.0) mmol/L Chloride (101-111) mmol/L Carbon Dioxide (22-32) mmol/L Anion Gap (2-11) mmol/L BUN (6-24) mg/dL Creatinine (0.51-0.95) mg/dL Est GFR ( Amer) (>60) Est GFR (Non-Af Amer) (>60) BUN/Creatinine Ratio (8-20) Glucose (70-100) mg/dL Lactic Acid (0.5-2.0) mmol/L Calcium (8.6-10.3) mg/dL Total Bilirubin (0.2-1.0) mg/dL AST (13-39) U/L ALT (7-52) U/L Alkaline Phosphatase (34-104) U/L Total Protein (6.4-8.9) g/dL Albumin (3.2-5.2) g/dL Globulin (2-4) g/dL Albumin/Globulin Ratio (1-3) Urine Color Yellow Urine Appearance Clear Urine pH 7.0 (5-9) Ur Specific [place] 1.011 (1.010-1.030) Urine Protein 1+(30 mg/dl) H (Negative) Urine Ketones 1+ H (Negative) Urine Blood 1+ H (Negative) Urine Nitrate Negative (Negative) Urine Bilirubin Negative (Negative) Urine Urobilinogen Negative (Negative) Ur Leukocyte Esterase 1+ H (Negative) Urine WBC (Auto) 1+(6-10/hpf) H (Absent) Urine RBC (Auto) Trace(0-2/hpf) (Absent) Ur Squamous Epith Cells Present H (Absent) Urine Bacteria 1+ H (Absent) Urine Glucose Negative (Negative) Assess/Plan/Problems-Billing Assessment: 31 yo F presents with headache and photophobia - Patient Problems (1) Headache Comment: with photophobia. Better after tx with morphine CSF unremarknable (no WBC's), cx pending, but no bacteria seen viral syndrome vs Lyme. cont Doxy PO. Stop IVF Appreciate Dr. Parikh's recommendations. Babesia smear neg. Tick borne pathogens PCR pending. Lyme neg on 11/03/16. Monospot neg. EBV IG pending. Blood/CSF cx neg. (2) Inguinal lymphadenopathy Comment: US shows necrotic inguinal LN on left. appreciate POWER ENGINEER consult. Erythema on left labia majora may be related to E. migrans. RPR, HIV pending (3) Thrombocytopenia Comment: And elevated INR 1.2- may be due to anaplasma, or SIRS-will monitor (4) DVT prophylaxis Comment: low risk, ambulation Status and Disposition: inpatient
[2016-11-06] MEDS: Ibuprofen TAB* 600 MG PO PRN (15:53)
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
[2016-11-07] MEDS: traMADol TAB* 50 MG PO PRN (04:31)
[2016-11-07 06:18] LABS: Hematocrit 30 % (35-47); Hemoglobin 10.3 g/dl (12.0-16.0); Mean Corpuscular HGB Conc 34 g/dl (31-36); Mean Corpuscular Hemoglobin 31 pg (27-31); Mean Corpuscular Volume 92 fL (80-97); Mean Platelet Volume 10 um3 (7.4-10.4); Red Blood Count 3.27 10^6/ul (4.0-5.4); Red Cell Distribution Width 14 % (10.5-15); White Blood Count 6.7 10^3/ul (3.5-10.8)
[2016-11-07 06:29] LABS: BUN/Creatinine Ratio 6.9 (8-20); Calcium 8.5 mg/dL (8.6-10.3); EGFR African American 158.1 (>60); EGFR Non-African American 122.9 (>60); Potassium 3.4 mmol/L (3.5-5.0)
[2016-11-07] MEDS: Ibuprofen TAB* 600 MG PO PRN ×2 (08:46→15:03)
[2016-11-07] MEDS: Acetaminophen TAB* 325 MG PO PRN ×3 (08:46→18:13)
[2016-11-07] MEDS: DOXYcycline CAP(*) 100 MG PO SCH ×2 (08:46→18:36)
[2016-11-07 11:48] VITALS: BP 100/62
[2016-11-07 12:10] LABS: Syphilis Index < 0.1 Index
[2016-11-07] MEDS ORDERED: Furosemide IV* 10 MG/ML 2 ML VIAL (20 MG) IV ONE (14:13)
--- NOTE | 2016-11-08 01:20 | DS ---
CC: Dr. Parikh; Yessica Crabtree MD * DISCHARGE SUMMARY: DATE OF ADMISSION: 11/04/16 DATE OF DISCHARGE: 11/07/16 PRIMARY CARE PROVIDER: None. DISCHARGE DIAGNOSIS: Febrile illness with headache, neck pain, anterior cervical adenopathy in the left, inguinal adenopathy with necrotic lymph nodes on ultrasound, possibly due to acute Lyme's. MEDICATIONS AT DISCHARGE: Include: 1. Ibuprofen 600 mg p.o. every 6 hours p.r.n. 2. Tylenol 500 mg every 6 hours p.o. p.r.n. 3. Doxycycline 100 mg p.o. b.i.d. for a total of 2 weeks. CONSULTATIONS DURING THE HOSPITAL STAY: Included Dr. Yessica Crabtree from Gynecology and Dr. Parikh of Infectious Diseases. LABORATORY DATA PERFORMED DURING THE HOSPITAL STAY: Included: ESR of 27. On , white blood cell count 6.7, hemoglobin 10.3, hematocrit 30 and platelets 129,000. INR of 1.22 obtained on 11/05/16. On 11/07/16, sodium 135, potassium 3.4, chloride 104, carbon dioxide of 27, BUN 4, creatinine 0.58. Patient's C-reactive protein on 11/05/16 was 129. Urinalysis showed +1 of protein, ketones and blood. +1 bacteria present. Blood cultures were negative to date of discharge. CSF fluid, growth was negative. Cerebrospinal fluid: Cell count and differential included colorless and clear fluid with a total of 4 cells, 75% of lymphocytes and 25% of monocytes. CSF glucose was 89 and total protein of 36. Syphilis IgG was negative. [place] screen was negative. HIV was negative. A black parasite screen for Babesia was negative. Soft tissue ultrasound obtained on 11/05/16 of the left inguinal area showed, impression: "Enlarged necrotic-appearing left inguinal lymph nodes. Suggest followup clinical evaluation and management." LABORATORY DATA PENDING AT THE TIME OF DISCHARGE: Include CSF Lyme disease vestibular, CSF Lyme disease IgG, Radha-Wiggins virus serology, tick-borne panel PCR, and Ehrlichia and anaplasma PCR. 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 She presented to the hospital with 3 days' history of severe headache, neck pain and fevers. When she came into the hospital, her temperature was up to 102 degrees. Her neck pain was mostly anterior and nevertheless, a lumbar puncture was obtained in the ER and her cerebrospinal fluid results showed basically no white blood cells. Cultures were negative to date. Patient also complained of left labia minora swelling and inguinal lymphadenopathy. Ultrasound of the left inguinal area noted necrotic lymph nodes. Patient also had shotty anterior cervical adenopathy, but no complaints of sore throat. She did not have stiff neck per se, but she did have anterior neck tenderness on palpation. She also had headache and photophobia. She has no history of known tick bites. Due to the vulvar area swelling, I asked Dr. Yessica Crabtree from Gynecology for evaluation. The gynecology evaluation was conclusive of most likely non- gynecologic source of patient's symptoms. A possibility of acute lyme or Babesia was questioned. Dr. Parikh saw patient in consultation, recommended further tick borne disease panel. Babesia smear was noted to be negative. Patient was placed on doxycycline at admission and did very well on it. She had mild thrombocytopenia on presentation that started resolving by the time of discharge. The edema of left inguinal area resolved by the time of discharge. Patient also had mild erythema in the left labia minora area that could be due to erythema migrans, although because of the location it was difficult to really distinguish or evaluate for target lesion. In either way, that did resolve by the time of discharge. Patient's anterior cervical adenopathy also improved by the time of discharge and was nontender. Patient is going to be discharged to home with recommendation to follow up with Dr. Parikh in approximately [address] Parikh recommended 2 weeks of treatment of doxycycline. PHYSICAL EXAMINATION: At the time of discharge, Vitals: Blood pressure of 100/ 62, heart rate of 62 and regular, respiratory rate 12, oxygen saturation 100% on room air, temperature 97.8. General: This is a very pleasant 31-year-old female who is in no acute distress. Alert, awake, and oriented x3. HEENT: Head is atraumatic, normocephalic. Eyes: Pupils are equal, reactive to light and accommodation. Oropharynx is clear. Mucosa moist. Neck: Supple, with mild anterior cervical lymphadenopathy. Mildly tender to palpation. Respiratory: Clear to auscultation bilaterally. Cardiovascular: Regular rate and rhythm. No murmurs. Abdomen: Soft, nontender, bowel sounds present in all quadrants. Extremities: There is no edema. Pulses +2 bilaterally. No clubbing or cyanosis. On evaluation of patient's inguinal lymph nodes, patient has mild left inguinal adenopathy. Nontender to palpation. Evaluation of the skin: No ecchymotic areas or rashes. Neuro Evaluation: Speech clear. Cranial nerves II through XII grossly intact. Motor strength is 5/5 bilaterally. Please note that this is a short summary of patient's hospitalization. Please refer to further medical records for details. TIME SPENT: Approximately 35 minutes were spent on the patient's discharge. [id number] #: [id number] [facility]
[2016-11-08 17:21] LABS: Ehrlichia ewingii/canis Negative (Negative)
[2016-11-08 19:20] LABS: B. miyamotoi PCR, B Negative (Negative); Babesia divergens/MO-1 Negative (Negative); Babesia ducani Negative (Negative); Ehrlichia ewingii/canis Negative (Negative)
== END 2016-11-07 19:15 | disposition home or self-care (01) | DRG 724 ==
LOC: ED 16:12 → MED 20:22 → OBSVTOIN 11-05 11:12
PROVIDERS: ADMIT Internal Medicine; ATTEND Internal Medicine
PROC: 009U3ZX Drainage of Spinal Canal, Percutaneous Approach, Diagnostic (ICD-10-PCS; principal; 2016-11-05)
DX: A69.20 Lyme disease, unspecified (principal); A26.0 Cutaneous erysipeloid; D69.6 Thrombocytopenia, unspecified; Z88.5 Allergy status to narcotic agent; Z82.49 Family history of ischemic heart disease and other diseases of the circulatory system; Z80.6 Family history of leukemia; Z88.8 Allergy status to other drugs, medicaments and biological substances; R59.0 Localized enlarged lymph nodes; H53.149 Visual discomfort, unspecified; D64.9 Anemia, unspecified; Z90.49 Acquired absence of other specified parts of digestive tract
CPT/HCPCS: 36415; 80048; 80053; 81003; 82945; 83605; 84157; 85025; 85610; 85652; 85730; 86140; 86308; 86592; 86617; 86618; 86663; 86703; 87015; 87040; 87070; 87205; 87207; 87798; 89051; 94760; A9270-GY; G0378; J0696; J1200; J1885; J1940; J2270; J2405; J3370